=== PATIENT | male | born 1965 | race Caucasian/White ===

== ENCOUNTER 2019-01-05 13:21 | Inpatient (IN) | payer OTHER ==
[~2019-01-05] VITALS: Ht 188 cm; Wt 124.5 kg
[2019-01-05] MEDS ORDERED: IV NORMAL SALINE 1000ML BAG 1,000 ML IV ONE ×2 (13:45→14:00)
[2019-01-05] MEDS ORDERED: ACETAMINOPHEN 500 MG TABLET PO ONE (13:45)
[2019-01-05 14:02] LABS: BASO # 0.1 x10^3/uL (0.0-0.2); BASO % 1 % (0-3); EOS # 0.3 x10^3/uL (0.0-0.7); EOS % 4 % (0-3); HEMOGLOBIN 14.2 g/dL (13.0-17.5); LYMPH # 2.1 x10^3/uL (1.0-4.8); LYMPH % 26 % (24-48); MEAN CORPUSCULAR HEMOGLOBIN 30 pg (25-35); MEAN CORPUSCULAR HGB CONC 34 g/dL (31-37); MEAN CORPUSCULAR VOLUME 88 fL (79-100); MONO % 12 % (0-9); NEUT # 4.5 x10^3/uL (1.8-7.7); NEUT % 57 % (31-73); PLATELET COUNT 343 x10^3/uL (140-400); WHITE BLOOD COUNT 7.8 x10^3/uL (4.0-11.0)
[2019-01-05 14:08] LABS: CALCIUM 8.9 mg/dL (8.5-10.1); CREATININE 1.2 mg/dL (0.7-1.3); GFR 63.8
[2019-01-05 14:09] LABS: BILIRUBIN,URINE NEGATIVE (NEG); CLARITY,URINE CLEAR; COLOR,URINE YELLOW; NITRITE,URINE NEGATIVE (NEG); PH,URINE 5.5; PROTEIN,URINE NEGATIVE (NEG-TRACE); UROBILINOGEN,URINE 0.2 mg/dL (0.2 mg/dL)
[2019-01-05 14:11] LABS: ALBUMIN 4.1 g/dL (3.4-5.0); ALBUMIN/GLOBULIN RATIO 1.4 (1.0-1.7); MAGNESIUM 2.1 mg/dL (1.8-2.4); TOTAL BILIRUBIN 0.4 mg/dL (0.2-1.0)
[2019-01-05 14:14] LABS: BACTERIA,URINE 0 /HPF (0-FEW); RBC,URINE 0 /HPF (0-2); SQUAMOUS EPITHELIAL CELL,UR FEW /LPF; WBC,URINE 0 /HPF (0-4)
[2019-01-05 14:17] LABS: BARBITURATES NEG (NEG); BENZODIAZEPINES NEG (NEG); CANNABINOIDS POS (NEG); COCAINE NEG (NEG); METHADONE NEG (NEG); OPIATES NEG (NEG); PHENCYCLIDINE NEG (NEG)
[2019-01-05 14:19] LABS: AMPHETAMINE/METHAMPHETAMINE NEG (NEG)
--- NOTE | 2019-01-05 14:33 | RAD ---
CT HEAD WO CONTRAST Indication: Seizure. Altered mental status. Exposure: One or more of the following individualized dose reduction techniques were utilized for this examination: 1. Automated exposure control 2. Adjustment of the mA and/or kV according to patient size 3. Use of iterative reconstruction technique. Technique: Standard imaging without intravenous contrast. No evidence of acute intracranial hemorrhage, mass effect, midline shift or abnormal extra-axial fluid collection. Christian-white matter distinction is preserved. Ventricles and sulci appear intact. Partially visualized sinuses demonstrate mild ethmoid and sphenoid sinus mucosal thickening. Complete opacification of right frontal sinus. The barely included maxillary sinuses appear clear. Mastoids are clear. Visualized orbits are unremarkable. No significant scalp hematoma. No acute skull abnormality. IMPRESSION: No definite acute intracranial hemorrhage. If concern persists, consider outpatient MRI brain. Electronically signed by: Gopal Marie MD (01/05/2019 2:31 PM) [facility]
--- NOTE | 2019-01-05 14:50 | RAD ---
Portable chest HISTORY: Chest pain after CPR. COMPARISON: None FINDINGS: Cardiomediastinal silhouette is not enlarged. No evidence of pneumothorax. No pleural effusion. No evidence of an infiltrate. Lung volumes are low. Aorta mildly tortuous. IMPRESSION: No evidence of consolidating infiltrate. Electronically signed by: Gopal Marie MD (01/05/2019 2:47 PM) [facility]
--- NOTE | 2019-01-05 14:58 | PDOC1 ---
History and Physical Date of Admission Date of Admission DATE: 01/05/19 TIME: 14:58 Identification/Chief Complaint Chief Complaint Syncope Source Source: Caregiver, Chart review, Patient History of Present Illness History of Present Illness Mr Ward is a 53yo M w/ PMHx HTN, obesity s/p sleeve gastrectomy, complex regional pain of left ankle, ARABELLA previously on CPAP who was shopping with his at [employer] and [employer] when he had a witnessed convulsive seizure of all 4 extremities where he was notably stiff and shaking uncontrollably. His face was white and then turned purple, he stopped breathing and so a bystander administered CPR. The patient had postictal confusion for more than 15 minutes. Lactate 6.7 in ED and he was fully oriented with no neurologic complaints, but does c/o chest pain. There is no prior history of stroke, seizure, or head injury. 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 Has been sleeping very poorly recently. He requests pain medications for his chest. Past Medical History Cardiovascular: HTN Pulmonary: No pertinent hx GI: No pertinent hx Heme/Onc: No pertinent hx Hepatobiliary: No pertinent hx Psych: No pertinent hx Musculoskeletal: Osteoarthritis Rheumatologic: Other (Neuropathic left ankle pain) Infectious disease: No pertinent hx ENT: No pertinent hx Renal/: No pertinent hx Endocrine: No pertinent hx Dermatology: No pertinent hx Current Medications Current Medications Current Medications Sodium Chloride 1,000 ml @ 1,000 mls/hr 1X ONCE IV Last administered on 01/05/19at 13:58; Start 01/05/19 at 13:45; Stop 01/05/19 at 14:44; Status DC Lorazepam (Ativan Inj) 1 mg 1X ONCE IV Last administered on 01/05/19at 13:58; Start 01/05/19 at 13:45; Stop 01/05/19 at 13:49; Status DC Acetaminophen (Tylenol) 1,000 mg 1X ONCE PO Last administered on 01/05/19at 13:58; Start 01/05/19 at 13:45; Stop 01/05/19 at 13:49; Status DC Sodium Chloride 1,000 ml @ 1,000 mls/hr 1X ONCE IV ; Start 01/05/19 at 14:00; Stop 01/05/19 at 14:59 Ceftriaxone Sodium (Rocephin) 1 gm 1X ONCE IVP ; Start 01/05/19 at 15:00; Stop 01/05/19 at 15:01 Sodium Chloride 1,000 ml @ 125 mls/hr Q8H IV ; Start 01/05/19 at 14:49; Stop 01/06/19 at 14:48 Morphine Sulfate (Morphine Sulfate) 4 mg 1X ONCE IV ; Start 01/05/19 at 15:00; Stop 01/05/19 at 15:01 Allergies Allergies: Coded Allergies: No Known Drug Allergies (Unverified , 01/05/19) ROS General: No: Chills, Night Sweats, Fatigue, Malaise, Appetite, Other PSYCHOLOGICAL ROS: No: Anxiety, Behavioral Disorder, Concentration difficultie, Decreased libido, Depression, Disorientation, Hallucinations, Hostility, Irritablity, Memory difficulties, Mood Swings, Obsessive thoughts, Physical abuse, Sexual abuse, Sleep disturbances, Suicidal ideation, Other Eyes: No Blurry vision, No Decreased vision, No Double vision, No Dry eyes, No Excessive tearing, No Eye Pain, No Itchy Eyes, No Loss of vision, No Photophobia, No Scotomata, No Uses contacts, No Uses glasses, No Other HEENT: No: Heacaches, Visual Changes, Hearing change, Nasal congestion, Nasal discharge, Oral lesions, Sinus pain, Sore Throat, Epistaxis, Sneezing, Snoring, Tinnitus, Vertigo, Vocal changes, Other ALLERGY AND IMMUNOLOGY: No: Hives, Insect Bite Sensitivity, Itchy/Watery Eyes, Nasal Congestion, Post Nasal Drip, Seasonal Allergies, Other Hematological and Lymphatic: No: Bleeding Problems, Blood Clots, Blood Transfusions, Brusing, Night Sweats, Pallor, Swollen Lymph Nodes, Other ENDOCRINE: No: Breast Changes, Galactorrhea, Hair Pattern Changes, Hot Flashes, Malaise/lethargy, Mood Swings, Palpitations, Polydipsia/polyuria, Skin Changes, Temperature Intolerance, Unexpected Weight Changes, Other Breast: No New/Changing Breast Lumps, No Nipple changes, No Nipple discharge, No Other Respiratory: No: Cough, Hemoptysis, Orthopnea, Pleuritic Pain, Shortness of breath, SOB with excertion, Sputum Changes, Stridor, Tachypnea, Wheezing, Other Cardiovascular: yes Chest Pain; No Palpitations, No Orthopnea, No Paroxysmal Noc. Dyspnea, No Edema, No Lt Headedness, No Other Gastrointestinal: Yes Nausea; No Vomiting, No Abdominal Pain, No Diarrhea, No Constipation, No Melena, No Hematochezia, No Other Genitourinary: No Dysuria, No Frequency, No Incontinence, No Hematuria, No Retention, No Discharge, No Urgency, No Pain, No Flank Pain, No Other, No , No , No , No , No , No , No Musculoskeletal: No Gait Disturbance, No Joint Pain, No Joint Stiffness, No Joint Swelling, No Muscle Pain, No Muscular Weakness, No Pain In:, No Swelling In:, No Other Neurological: No Behavorial Changes, No Bowel/Bladder ControlChng, No Confusion, No Dizziness, No Gait Disturbance, No Headaches, No Impaired Coord/balance, No Memory Loss, No Numbness/Tingling, No Seizures, No Speech Problems, No Tremors, No Visual Changes, No Weakness, No Other Skin: No Dry Skin, No Eczema, No Hair Changes, No Lumps, No Mole Changes, No Mottling, No Nail Changes, No Pruritus, No Rash, No Skin Lesion Changes, No Other, No Acne Physical Exam General: Alert, Oriented X3, Cooperative, No acute distress HEENT: Atraumatic, PERRLA, EOMI, Mucous membr. moist/pink Lungs: Clear to auscultation, Normal air movement Heart: S1S2, RRR, no gallops, no murmurs Abdomen: Normal bowel sounds, Soft, No tenderness, No hepatosplenomegaly, No masses Rectal Exam: not examined Extremities: No clubbing, No cyanosis, No edema, Normal pulses, No tenderness/swelling Skin: No rashes, No breakdown, No significant lesion Neuro: Normal gait, Normal speech, Strength at 5/5 X4 ext, Normal tone, Sensation intact, Cranial nerves 3-12 NL, Reflexes 2+ Psych/Mental Status: Mental status NL, Mood NL Vitals Vitals Vital Signs Date Time Temp Pulse Resp B/P (MAP) Pulse Ox O2 Delivery O2 Flow Rate FiO2 01/05/19 13:31 100.9 110 20 155/86 (109) 100 Room Air 100.9 Labs Labs Laboratory Tests Test 01/05/19 13:40 9/2/19 14:03 White Blood Count 7.8 x10^3/uL (4.0-11.0) Red Blood Count 4.80 x10^6/uL (4.30-5.70) Hemoglobin 14.2 g/dL (13.0-17.5) Hematocrit 42.0 % (39.0-53.0) Mean Corpuscular Volume 88 fL (79-100) Mean Corpuscular Hemoglobin 30 pg (25-35) Mean Corpuscular Hemoglobin Concent 34 g/dL (31-37) Red Cell Distribution Width 15.0 % (11.5-14.5) Platelet Count 343 x10^3/uL (140-400) Neutrophils (%) (Auto) 57 % (31-73) Lymphocytes (%) (Auto) 26 % (24-48) Monocytes (%) (Auto) 12 % (0-9) Eosinophils (%) (Auto) 4 % (0-3) Basophils (%) (Auto) 1 % (0-3) Neutrophils # (Auto) 4.5 x10^3/uL (1.8-7.7) Lymphocytes # (Auto) 2.1 x10^3/uL (1.0-4.8) Monocytes # (Auto) 1.0 x10^3/uL (0.0-1.1) Eosinophils # (Auto) 0.3 x10^3/uL (0.0-0.7) Basophils # (Auto) 0.1 x10^3/uL (0.0-0.2) Prothrombin Time 12.0 SEC (11.7-14.0) Prothromb Time International Ratio 0.9 (0.8-1.1) Sodium Level 145 mmol/L (136-145) Potassium Level 4.0 mmol/L (3.5-5.1) Chloride Level 106 mmol/L (98-107) Carbon Dioxide Level 25 mmol/L (21-32) Anion Gap 14 (6-14) Blood Urea Nitrogen 10 mg/dL (8-26) Creatinine 1.2 mg/dL (0.7-1.3) Estimated GFR (Cockcroft-Gault) 63.8 BUN/Creatinine Ratio 8 (6-20) Glucose Level 83 mg/dL (70-99) Lactic Acid Level 6.7 mmol/L (0.4-2.0) Calcium Level 8.9 mg/dL (8.5-10.1) Magnesium Level 2.1 mg/dL (1.8-2.4) Total Bilirubin 0.4 mg/dL (0.2-1.0) Aspartate Amino Transf (AST/SGOT) 19 U/L (15-37) Alanine Aminotransferase (ALT/SGPT) 23 U/L (16-63) Alkaline Phosphatase 80 U/L (46-116) Troponin I Quantitative < 0.017 ng/mL (0.000-0.055) Total Protein 7.0 g/dL (6.4-8.2) Albumin 4.1 g/dL (3.4-5.0) Albumin/Globulin Ratio 1.4 (1.0-1.7) Ethyl Alcohol Level < 10 mg/dL (0-10) Urine Collection Type Unknown Urine Color Yellow Urine Clarity Clear Urine pH 5.5 Urine Specific [place] 1.015 Urine Protein Negative mg/dL (NEG-TRACE) Urine Glucose (UA) Negative mg/dL (NEG) Urine Ketones (Stick) Negative mg/dL (NEG) Urine Blood Negative (NEG) Urine Nitrite Negative (NEG) Urine Bilirubin Negative (NEG) Urine Urobilinogen Dipstick 0.2 mg/dL (0.2 mg/dL) Urine Leukocyte Esterase Negative (NEG) Urine RBC 0 /HPF (0-2) Urine WBC 0 /HPF (0-4) Urine Squamous Epithelial Cells Few /LPF Urine Bacteria 0 /HPF (0-FEW) Urine Mucus Mod /LPF Urine Opiates Screen Neg (NEG) Urine Methadone Screen Neg (NEG) Urine Barbiturates Neg (NEG) Urine Phencyclidine Screen Neg (NEG) Urine Amphetamine/Methamphetamine Neg (NEG) Urine Benzodiazepines Screen Neg (NEG) Urine Cocaine Screen Neg (NEG) Urine Cannabinoids Screen Pos (NEG) Urine Ethyl Alcohol Neg (NEG) Laboratory Tests Test 01/05/19 13:40 01/05/19 14:03 White Blood Count 7.8 x10^3/uL (4.0-11.0) Red Blood Count 4.80 x10^6/uL (4.30-5.70) Hemoglobin 14.2 g/dL (13.0-17.5) Hematocrit 42.0 % (39.0-53.0) Mean Corpuscular Volume 88 fL (79-100) Mean Corpuscular Hemoglobin 30 pg (25-35) Mean Corpuscular Hemoglobin Concent 34 g/dL (31-37) Red Cell Distribution Width 15.0 % (11.5-14.5) Platelet Count 343 x10^3/uL (140-400) Neutrophils (%) (Auto) 57 % (31-73) Lymphocytes (%) (Auto) 26 % (24-48) Monocytes (%) (Auto) 12 % (0-9) Eosinophils (%) (Auto) 4 % (0-3) Basophils (%) (Auto) 1 % (0-3) Neutrophils # (Auto) 4.5 x10^3/uL (1.8-7.7) Lymphocytes # (Auto) 2.1 x10^3/uL (1.0-4.8) Monocytes # (Auto) 1.0 x10^3/uL (0.0-1.1) Eosinophils # (Auto) 0.3 x10^3/uL (0.0-0.7) Basophils # (Auto) 0.1 x10^3/uL (0.0-0.2) Prothrombin Time 12.0 SEC (11.7-14.0) Prothromb Time International Ratio 0.9 (0.8-1.1) Sodium Level 145 mmol/L (136-145) Potassium Level 4.0 mmol/L (3.5-5.1) Chloride Level 106 mmol/L (98-107) Carbon Dioxide Level 25 mmol/L (21-32) Anion Gap 14 (6-14) Blood Urea Nitrogen 10 mg/dL (8-26) Creatinine 1.2 mg/dL (0.7-1.3) Estimated GFR (Cockcroft-Gault) 63.8 BUN/Creatinine Ratio 8 (6-20) Glucose Level 83 mg/dL (70-99) Lactic Acid Level 6.7 mmol/L (0.4-2.0) Calcium Level 8.9 mg/dL (8.5-10.1) Magnesium Level 2.1 mg/dL (1.8-2.4) Total Bilirubin 0.4 mg/dL (0.2-1.0) Aspartate Amino Transf (AST/SGOT) 19 U/L (15-37) Alanine Aminotransferase (ALT/SGPT) 23 U/L (16-63) Alkaline Phosphatase 80 U/L (46-116) Troponin I Quantitative < 0.017 ng/mL (0.000-0.055) Total Protein 7.0 g/dL (6.4-8.2) Albumin 4.1 g/dL (3.4-5.0) Albumin/Globulin Ratio 1.4 (1.0-1.7) Ethyl Alcohol Level < 10 mg/dL (0-10) Urine Collection Type Unknown Urine Color Yellow Urine Clarity Clear Urine pH 5.5 Urine Specific [place] 1.015 Urine Protein Negative mg/dL (NEG-TRACE) Urine Glucose (UA) Negative mg/dL (NEG) Urine Ketones (Stick) Negative mg/dL (NEG) Urine Blood Negative (NEG) Urine Nitrite Negative (NEG) Urine Bilirubin Negative (NEG) Urine Urobilinogen Dipstick 0.2 mg/dL (0.2 mg/dL) Urine Leukocyte Esterase Negative (NEG) Urine RBC 0 /HPF (0-2) Urine WBC 0 /HPF (0-4) Urine Squamous Epithelial Cells Few /LPF Urine Bacteria 0 /HPF (0-FEW) Urine Mucus Mod /LPF Urine Opiates Screen Neg (NEG) Urine Methadone Screen Neg (NEG) Urine Barbiturates Neg (NEG) Urine Phencyclidine Screen Neg (NEG) Urine Amphetamine/Methamphetamine Neg (NEG) Urine Benzodiazepines Screen Neg (NEG) Urine Cocaine Screen Neg (NEG) Urine Cannabinoids Screen Pos (NEG) Urine Ethyl Alcohol Neg (NEG) Images Images CT head - no acute intracranial abnormality VTE Prophylaxis Ordered VTE Prophylaxis Devices: Yes VTE Pharmacological Prophylaxi: No Assessment/Plan Assessment/Plan A/P: New onset seizure - spontaneously stopped. Ativan prn. Likely related to sleep deprivation or he possibly has had dose adjustments to lyrica. Neurology consulted. MRI and EEG head indicated Chest pain - 2/2 CPR in field. He was not noted as pulseless, simply stopped breathing. Will cont pain meds IV and PO and trend troponins HTN - will cont home meds Obesity s/p sleeve gastrectomy - lost 130 pounds, gained 30 back. Counseled Complex regional pain of left ankle - on lyrica. Possibly related to seizure, will consult neurology. Cont med for now ARABELLA previously on CPAP - has been sleeping poorly, needs a titration study. FEN - General PPX - SCDs FULL CODE Inpatient for new seizure. No driving discussed with patient BRICE FISHER MD Jan 05, 2019 14:58
[2019-01-05] MEDS ORDERED: MORPHINE SULFATE 4 MG/ML VIAL. IV ONE (15:00)
[2019-01-05] MEDS ORDERED: cefTRIAXone IV Push 1 GM VIAL. IVP ONE (15:00)
[2019-01-05] MEDS ORDERED: HYDROmorphone 2 MG/ML VIAL IV ONE (16:00)
--- NOTE | 2019-01-05 16:03 | PHYS DOC ---
Past Medical History Past Medical History: Hypertension Past Surgical History: Knee Replacement Alcohol Use: Rarely Drug Use: None Adult General Chief Complaint Chief Complaint: SEIZURE HPI HPI Patient is a 53 year old male who presents with chief complaint of seizure or syncope. Apparently the patient was shopping at [employer] with the began to feel woozy felt some aura or described really as seeing spots in the periphery of his vision felt very lightheaded and dizzy went inside, but then before they could get a laurie, slumped up against the wall he turned white lips were blue he had shaking activity thinks it was a seizure bystander who apparently was a nurse tells me began to perform CPR approximately a minute or 2 is not sure exactly on tnt line supervisor arrival the patient had a postictal but was awake and answering questions generally Patient denies recent illnesses did not have a fever before the incident did not have any chest pain prior to that he is currently complaining of sharp right- sided chest pain where the CPR was performed no prior history of seizure disorder denies headache ON initial evaluation the emergency room. Review of Systems Review of Systems Constitutional: Denies fever or chills [] Eyes: Denies change in visual acuity, redness, or eye pain [] HENT: Denies nasal congestion or sore throat [][] Cardiovascular: No additional information not addressed in HPI [] GI: Denies abdominal pain, nausea, vomiting, bloody stools or diarrhea [] : Denies dysuria or hematuria [] Musculoskeletal: Denies back pain or joint pain [] All other systems were reviewed and found to be within normal limits, except as documented in this note. Current Medications Current Medications Current Medications Medications (Trade) Dose Ordered Sig/Kwan Start Time Stop Time Status Last Admin Dose Admin Acetaminophen (Tylenol) 1,000 mg 1X ONCE 01/05/19 13:45 01/05/19 13:49 DC 01/05/19 13:58 1,000 MG Ceftriaxone Sodium (Rocephin) 1 gm 1X ONCE 01/05/19 15:00 01/05/19 15:01 DC 01/05/19 15:22 1 GM Lorazepam (Ativan Inj) 1 mg 1X ONCE 01/05/19 13:45 01/05/19 13:49 DC 01/05/19 13:58 1 MG Morphine Sulfate (Morphine Sulfate) 4 mg 1X ONCE 01/05/19 15:00 01/05/19 15:01 DC 01/05/19 15:22 4 MG Sodium Chloride 1,000 ml @ 125 mls/hr Q8H 01/05/19 14:49 01/06/19 14:48 Allergies Allergies Allergies Coded Allergies Type Severity Reaction Last Updated Verified No Known Drug Allergies 01/05/19 No Physical Exam Physical Exam Constitutional: Well developed, well nourished, no acute distress, non-toxic appearance. [] HENT: Normocephalic, atraumatic, bilateral external ears normal, oropharynx moist, no oral exudates, nose normal. [] Eyes: PERRLA, EOMI, conjunctiva normal, no discharge. [] Neck: Normal range of motion, no tenderness, supple, no stridor. [] Cardiovascular:Heart rate regular rhythm, no murmur [] Lungs & Thorax: Bilateral breath sounds clear to auscultation [] CHEST WALL TTP NOTED, REPRODUCIBLE Abdomen: Bowel sounds normal, soft, no tenderness, no masses, no pulsatile masses. [] Skin: Warm, dry, no erythema, no rash. [] Back: No tenderness, no CVA tenderness. [] Extremities: No tenderness, no cyanosis, no clubbing, ROM intact, no edema. [] Neurologic: Alert and oriented X 3, normal motor function, normal sensory function, no focal deficits noted. [] NECK IS SUPPLE. PT ALERT, NO NYSTAGMUS. Psychologic: Affect normal, judgement normal, mood normal. [] Current Patient Data Vital Signs Vital Signs Date Time Temp Pulse Resp B/P (MAP) Pulse Ox O2 Delivery O2 Flow Rate FiO2 01/05/19 14:59 87 18 97 01/05/19 13:31 100.9 155/86 (109) Room Air 100.9 Lab Values Laboratory Tests Test 01/05/19 13:40 01/05/19 14:03 01/05/19 15:15 White Blood Count 7.8 x10^3/uL (4.0-11.0) Red Blood Count 4.80 x10^6/uL (4.30-5.70) Hemoglobin 14.2 g/dL (13.0-17.5) Hematocrit 42.0 % (39.0-53.0) Mean Corpuscular Volume 88 fL (79-100) Mean Corpuscular Hemoglobin 30 pg (25-35) Mean Corpuscular Hemoglobin Concent 34 g/dL (31-37) Red Cell Distribution Width 15.0 % (11.5-14.5) H Platelet Count 343 x10^3/uL (140-400) Neutrophils (%) (Auto) 57 % (31-73) Lymphocytes (%) (Auto) 26 % (24-48) Monocytes (%) (Auto) 12 % (0-9) H Eosinophils (%) (Auto) 4 % (0-3) H Basophils (%) (Auto) 1 % (0-3) Neutrophils # (Auto) 4.5 x10^3/uL (1.8-7.7) Lymphocytes # (Auto) 2.1 x10^3/uL (1.0-4.8) Monocytes # (Auto) 1.0 x10^3/uL (0.0-1.1) Eosinophils # (Auto) 0.3 x10^3/uL (0.0-0.7) Basophils # (Auto) 0.1 x10^3/uL (0.0-0.2) Prothrombin Time 12.0 SEC (11.7-14.0) Prothrombin Time INR 0.9 (0.8-1.1) Sodium Level 145 mmol/L (136-145) Potassium Level 4.0 mmol/L (3.5-5.1) Chloride Level 106 mmol/L (98-107) Carbon Dioxide Level 25 mmol/L (21-32) Anion Gap 14 (6-14) Blood Urea Nitrogen 10 mg/dL (8-26) Creatinine 1.2 mg/dL (0.7-1.3) Estimated GFR (Cockcroft-Gault) 63.8 BUN/Creatinine Ratio 8 (6-20) Glucose Level 83 mg/dL (70-99) Lactic Acid Level 6.7 mmol/L (0.4-2.0) *H 0.9 mmol/L (0.4-2.0) Calcium Level 8.9 mg/dL (8.5-10.1) Magnesium Level 2.1 mg/dL (1.8-2.4) Total Bilirubin 0.4 mg/dL (0.2-1.0) Aspartate Amino Transferase (AST) 19 U/L (15-37) Alanine Aminotransferase (ALT) 23 U/L (16-63) Alkaline Phosphatase 80 U/L (46-116) Troponin I Quantitative < 0.017 ng/mL (0.000-0.055) Total Protein 7.0 g/dL (6.4-8.2) Albumin 4.1 g/dL (3.4-5.0) Albumin/Globulin Ratio 1.4 (1.0-1.7) Ethyl Alcohol Level < 10 mg/dL (0-10) Urine Collection Type Unknown Urine Color Yellow Urine Clarity Clear Urine pH 5.5 Urine Specific [place] 1.015 Urine Protein Negative mg/dL (NEG-TRACE) Urine Glucose (UA) Negative mg/dL (NEG) Urine Ketones (Stick) Negative mg/dL (NEG) Urine Blood Negative (NEG) Urine Nitrite Negative (NEG) Urine Bilirubin Negative (NEG) Urine Urobilinogen Dipstick 0.2 mg/dL (0.2 mg/dL) Urine Leukocyte Esterase Negative (NEG) Urine RBC 0 /HPF (0-2) Urine WBC 0 /HPF (0-4) Urine Squamous Epithelial Cells Few /LPF Urine Bacteria 0 /HPF (0-FEW) Urine Mucus Mod /LPF Urine Opiates Screen Neg (NEG) Urine Methadone Screen Neg (NEG) Urine Barbiturates Neg (NEG) Urine Phencyclidine Screen Neg (NEG) Urine Amphetamine/Methamphetamine Neg (NEG) Urine Benzodiazepines Screen Neg (NEG) Urine Cocaine Screen Neg (NEG) Urine Cannabinoids Screen Pos (NEG) Urine Ethyl Alcohol Neg (NEG) Laboratory Tests 01/05/19 13:40 Laboratory Tests 01/05/19 13:40 EKG EKG []EKG shows a normal sinus rhythm with a rate of 107 likely mild sinus tachycardia QTc 441 no acute STEMI was identified Radiology/Procedures Radiology/Procedures [] Exposure: One or more of the following individualized dose reduction techniques were utilized for this examination: 1. Automated exposure control 2. Adjustment of the mA and/or kV according to patient size 3. Use of iterative reconstruction technique. Technique: Standard imaging without intravenous contrast. No evidence of acute intracranial hemorrhage, mass effect, midline shift or abnormal extra-axial fluid collection. Christian-white matter distinction is preserved. Ventricles and sulci appear intact. Partially visualized sinuses demonstrate mild ethmoid and sphenoid sinus mucosal thickening. Complete opacification of right frontal sinus. The barely included maxillary sinuses appear clear. Mastoids are clear. Visualized orbits are unremarkable. No significant scalp hematoma. No acute skull abnormality. IMPRESSION: No definite acute intracranial hemorrhage. If concern persists, consider outpatient MRI brain. Electronically signed by: Gopal Marie MD (01/05/2019 2:31 PM) [facility] DICTATED and SIGNED BY: GOPAL MARIE MD DATE: 01/05/19 1431 Impressions: MPARISON: None FINDINGS: Cardiomediastinal silhouette is not enlarged. No evidence of pneumothorax. No pleural effusion. No evidence of an infiltrate. Lung volumes are low. Aorta mildly tortuous. IMPRESSION: No evidence of consolidating infiltrate. Electronically signed by: Gopal Marie MD (01/05/2019 2:47 PM) [facility] DICTATED and SIGNED BY: GOPAL MARIE MD DATE: 01/05/19 1447 Course & Med Decision Making Course & Med Decision Making Pertinent Labs and Imaging studies reviewed. 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 The story from the does sound probably more like a seizure however CPR was performed by cording to the report that I currently have a bystander who was training as a nurse. Lactic acidosis is noted again likely related to seizure however given the fact that CPR was performed I feel the patient warrants admission overnight for observation and cardiac monitoring hospitalist evaluation and possibly neurology consultation. Noted the temperature 100.9 on repeat it was 98.4 patient is awake and alert [place] Coma Scale 15 the neck is supple I do not think the patient has encephalitis or meningitis or any obvious source for sepsis at this time did give a dose of ceftriaxone in the emergency room as well as IV fluids and will repeat the lactic acid but again I do not think the lactic acidosis from sepsis at this time Discussed with Dr. FISHER saw the patient in the ER. Please routine consult with neurology as well and Dr. Hart did come down to see the patient in the emergency room as well. I also told the patient not to drive until he is cleared by neurology Dragon Disclaimer Dragon Disclaimer This electronic medical record was generated, in whole or in part, using a voice recognition dictation system. Departure Departure Impression: Primary Impression: Lactic acid acidosis Additional Impression: Seizure Disposition: ADMITTED INPATIENT Admitting Physician: HIMS Condition: STABLE Referrals: UNKNOWN PCP NAME (PCP) Problem Qualifiers DENVER RAHMAN MD Jan 05, 2019 16:03
--- NOTE | 2019-01-05 16:13 | PDOC2 ---
NEUROLOGY CONSULT Date of Admission Date of Admission DATE: 01/05/19 TIME: 16:05 Reason for Consult Reason for Consult: seizure Referring Physician Referring Physician: Dr. Wallis Source Source: Caregiver (), Chart review, Patient History of Present Illness History of Present Illness The patient is a 33-year-old right-handed male who was shopping with his when he had a witnessed convulsive seizure. The describes a typical convulsive seizure. His face was white and a bystander administered CPR. The patient had postictal confusion. He was alert in the emergency department where I examined him. There is no prior history of stroke, seizure, or head injury. 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 He is having some chest wall pain following the resuscitation attempts, and would like Tylenol 3 instead of morphine which makes his stomach hurt. 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 Current Medications Current Medications Current Medications Sodium Chloride 1,000 ml @ 1,000 mls/hr 1X ONCE IV Last administered on 01/05/19at 13:58; Start 01/05/19 at 13:45; Stop 01/05/19 at 14:44; Status DC Lorazepam (Ativan Inj) 1 mg 1X ONCE IV Last administered on 01/05/19at 13:58; Start 01/05/19 at 13:45; Stop 01/05/19 at 13:49; Status DC Acetaminophen (Tylenol) 1,000 mg 1X ONCE PO Last administered on 01/05/19at 13:58; Start 01/05/19 at 13:45; Stop 01/05/19 at 13:49; Status DC Sodium Chloride 1,000 ml @ 1,000 mls/hr 1X ONCE IV Last administered on 01/05/19at 15:31; Start 01/05/19 at 14:00; Stop 01/05/19 at 14:59; Status DC Ceftriaxone Sodium (Rocephin) 1 gm 1X ONCE IVP Last administered on 01/05/19at 15:22; Start 01/05/19 at 15:00; Stop 01/05/19 at 15:01; Status DC Sodium Chloride 1,000 ml @ 125 mls/hr Q8H IV ; Start 01/05/19 at 14:49; Stop 01/06/19 at 14:48 Morphine Sulfate (Morphine Sulfate) 4 mg 1X ONCE IV Last administered on 01/05/19at 15:22; Start 01/05/19 at 15:00; Stop 01/05/19 at 15:01; Status DC Hydromorphone HCl (Dilaudid) 1 mg 1X ONCE IV ; Start 01/05/19 at 16:00; Stop 01/05/19 at 16:01; Status DC Allergies Allergies: Coded Allergies: No Known Drug Allergies (Unverified , 01/05/19) ROS Review of System Negative for fever, chills, weight loss, shortness of breath, chest pain, indigestion, hematochezia, melena, and dysuria. Full 14-point review of systems is negative. Physical Exam Physical Examination General: Well-developed, well-nourished white male in no acute distress HEENT: Normocephalic and�atraumatic. Temporal arteries�pulsatile and nontender.� Neck: Supple without bruit, no meningismus� Musculoskeletal: Stability:�see neurologic. Gait exam:�see neurologic. Tone:�see neurologic.� Strength:�see neurologic.� Neurological: Mental Status:�intact, orientation, memory, attention span/concentration, language, fund of knowledge normal. Cranial Nerves:�Pupils equal and reactive to light, extraocular movements are�intact, visual thao are full to confrontation. Facial sensation is normal. There is no facial asymmetry. Vestibulo-ocular reflex is intact. Palate elevates and tongue protrudes in midline. All other cranial related problems are negative except as mentioned before.�Reflexes:�2+ and symmetric with flexor plantar responses. Motor:�5/5 strength with normal tone and bulk. Coordination:�Finger-nose finger and he el-to-landry testing are normal. Rapid alternating movements and fine finger movements are intact. Gait:�not tested. Sensory:�Normal pinprick, vibration, light touch, proprioception.� Vitals VITALS Vital Signs Date Time Temp Pulse Resp B/P (MAP) Pulse Ox O2 Delivery O2 Flow Rate FiO2 01/05/19 14:59 87 18 97 01/05/19 13:31 100.9 155/86 (109) Room Air 100.9 Labs Labs Laboratory Tests Test 01/05/19 13:40 01/05/19 14:03 01/05/19 15:15 White Blood Count 7.8 x10^3/uL (4.0-11.0) Red Blood Count 4.80 x10^6/uL (4.30-5.70) Hemoglobin 14.2 g/dL (13.0-17.5) Hematocrit 42.0 % (39.0-53.0) Mean Corpuscular Volume 88 fL (79-100) Mean Corpuscular Hemoglobin 30 pg (25-35) Mean Corpuscular Hemoglobin Concent 34 g/dL (31-37) Red Cell Distribution Width 15.0 % (11.5-14.5) Platelet Count 343 x10^3/uL (140-400) Neutrophils (%) (Auto) 57 % (31-73) Lymphocytes (%) (Auto) 26 % (24-48) Monocytes (%) (Auto) 12 % (0-9) Eosinophils (%) (Auto) 4 % (0-3) Basophils (%) (Auto) 1 % (0-3) Neutrophils # (Auto) 4.5 x10^3/uL (1.8-7.7) Lymphocytes # (Auto) 2.1 x10^3/uL (1.0-4.8) Monocytes # (Auto) 1.0 x10^3/uL (0.0-1.1) Eosinophils # (Auto) 0.3 x10^3/uL (0.0-0.7) Basophils # (Auto) 0.1 x10^3/uL (0.0-0.2) Prothrombin Time 12.0 SEC (11.7-14.0) Prothromb Time International Ratio 0.9 (0.8-1.1) Sodium Level 145 mmol/L (136-145) Potassium Level 4.0 mmol/L (3.5-5.1) Chloride Level 106 mmol/L (98-107) Carbon Dioxide Level 25 mmol/L (21-32) Anion Gap 14 (6-14) Blood Urea Nitrogen 10 mg/dL (8-26) Creatinine 1.2 mg/dL (0.7-1.3) Estimated GFR (Cockcroft-Gault) 63.8 BUN/Creatinine Ratio 8 (6-20) Glucose Level 83 mg/dL (70-99) Lactic Acid Level 6.7 mmol/L (0.4-2.0) 0.9 mmol/L (0.4-2.0) Calcium Level 8.9 mg/dL (8.5-10.1) Magnesium Level 2.1 mg/dL (1.8-2.4) Total Bilirubin 0.4 mg/dL (0.2-1.0) Aspartate Amino Transf (AST/SGOT) 19 U/L (15-37) Alanine Aminotransferase (ALT/SGPT) 23 U/L (16-63) Alkaline Phosphatase 80 U/L (46-116) Troponin I Quantitative < 0.017 ng/mL (0.000-0.055) Total Protein 7.0 g/dL (6.4-8.2) Albumin 4.1 g/dL (3.4-5.0) Albumin/Globulin Ratio 1.4 (1.0-1.7) Ethyl Alcohol Level < 10 mg/dL (0-10) Urine Collection Type Unknown Urine Color Yellow Urine Clarity Clear Urine pH 5.5 Urine Specific [place] 1.015 Urine Protein Negative mg/dL (NEG-TRACE) Urine Glucose (UA) Negative mg/dL (NEG) Urine Ketones (Stick) Negative mg/dL (NEG) Urine Blood Negative (NEG) Urine Nitrite Negative (NEG) Urine Bilirubin Negative (NEG) Urine Urobilinogen Dipstick 0.2 mg/dL (0.2 mg/dL) Urine Leukocyte Esterase Negative (NEG) Urine RBC 0 /HPF (0-2) Urine WBC 0 /HPF (0-4) Urine Squamous Epithelial Cells Few /LPF Urine Bacteria 0 /HPF (0-FEW) Urine Mucus Mod /LPF Urine Opiates Screen Neg (NEG) Urine Methadone Screen Neg (NEG) Urine Barbiturates Neg (NEG) Urine Phencyclidine Screen Neg (NEG) Urine Amphetamine/Methamphetamine Neg (NEG) Urine Benzodiazepines Screen Neg (NEG) Urine Cocaine Screen Neg (NEG) Urine Cannabinoids Screen Pos (NEG) Urine Ethyl Alcohol Neg (NEG) Laboratory Tests Test 01/05/19 13:40 01/05/19 14:03 01/05/19 15:15 White Blood Count 7.8 x10^3/uL (4.0-11.0) Red Blood Count 4.80 x10^6/uL (4.30-5.70) Hemoglobin 14.2 g/dL (13.0-17.5) Hematocrit 42.0 % (39.0-53.0) Mean Corpuscular Volume 88 fL (79-100) Mean Corpuscular Hemoglobin 30 pg (25-35) Mean Corpuscular Hemoglobin Concent 34 g/dL (31-37) Red Cell Distribution Width 15.0 % (11.5-14.5) Platelet Count 343 x10^3/uL (140-400) Neutrophils (%) (Auto) 57 % (31-73) Lymphocytes (%) (Auto) 26 % (24-48) Monocytes (%) (Auto) 12 % (0-9) Eosinophils (%) (Auto) 4 % (0-3) Basophils (%) (Auto) 1 % (0-3) Neutrophils # (Auto) 4.5 x10^3/uL (1.8-7.7) Lymphocytes # (Auto) 2.1 x10^3/uL (1.0-4.8) Monocytes # (Auto) 1.0 x10^3/uL (0.0-1.1) Eosinophils # (Auto) 0.3 x10^3/uL (0.0-0.7) Basophils # (Auto) 0.1 x10^3/uL (0.0-0.2) Prothrombin Time 12.0 SEC (11.7-14.0) Prothromb Time International Ratio 0.9 (0.8-1.1) Sodium Level 145 mmol/L (136-145) Potassium Level 4.0 mmol/L (3.5-5.1) Chloride Level 106 mmol/L (98-107) Carbon Dioxide Level 25 mmol/L (21-32) Anion Gap 14 (6-14) Blood Urea Nitrogen 10 mg/dL (8-26) Creatinine 1.2 mg/dL (0.7-1.3) Estimated GFR (Cockcroft-Gault) 63.8 BUN/Creatinine Ratio 8 (6-20) Glucose Level 83 mg/dL (70-99) Lactic Acid Level 6.7 mmol/L (0.4-2.0) 0.9 mmol/L (0.4-2.0) Calcium Level 8.9 mg/dL (8.5-10.1) Magnesium Level 2.1 mg/dL (1.8-2.4) Total Bilirubin 0.4 mg/dL (0.2-1.0) Aspartate Amino Transf (AST/SGOT) 19 U/L (15-37) Alanine Aminotransferase (ALT/SGPT) 23 U/L (16-63) Alkaline Phosphatase 80 U/L (46-116) Troponin I Quantitative < 0.017 ng/mL (0.000-0.055) Total Protein 7.0 g/dL (6.4-8.2) Albumin 4.1 g/dL (3.4-5.0) Albumin/Globulin Ratio 1.4 (1.0-1.7) Ethyl Alcohol Level < 10 mg/dL (0-10) Urine Collection Type Unknown Urine Color Yellow Urine Clarity Clear Urine pH 5.5 Urine Specific [place] 1.015 Urine Protein Negative mg/dL (NEG-TRACE) Urine Glucose (UA) Negative mg/dL (NEG) Urine Ketones (Stick) Negative mg/dL (NEG) Urine Blood Negative (NEG) Urine Nitrite Negative (NEG) Urine Bilirubin Negative (NEG) Urine Urobilinogen Dipstick 0.2 mg/dL (0.2 mg/dL) Urine Leukocyte Esterase Negative (NEG) Urine RBC 0 /HPF (0-2) Urine WBC 0 /HPF (0-4) Urine Squamous Epithelial Cells Few /LPF Urine Bacteria 0 /HPF (0-FEW) Urine Mucus Mod /LPF Urine Opiates Screen Neg (NEG) Urine Methadone Screen Neg (NEG) Urine Barbiturates Neg (NEG) Urine Phencyclidine Screen Neg (NEG) Urine Amphetamine/Methamphetamine Neg (NEG) Urine Benzodiazepines Screen Neg (NEG) Urine Cocaine Screen Neg (NEG) Urine Cannabinoids Screen Pos (NEG) Urine Ethyl Alcohol Neg (NEG) Images Images CT HEAD WO CONTRAST Indication: Seizure. Altered mental status. Exposure: One or more of the following individualized dose reduction techniques were utilized for this examination: 1. Automated exposure control 2. Adjustment of the mA and/or kV according to patient size 3. Use of iterative reconstruction technique. Technique: Standard imaging without intravenous contrast. No evidence of acute intracranial hemorrhage, mass effect, midline shift or abnormal extra-axial fluid collection. Christian-white matter distinction is preserved. Ventricles and sulci appear intact. Partially visualized sinuses demonstrate mild ethmoid and sphenoid sinus mucosal thickening. Complete opacification of right frontal sinus. The barely included maxillary sinuses appear clear. Mastoids are clear. Visualized orbits are unremarkable. No significant scalp hematoma. No acute skull abnormality. IMPRESSION: No definite acute intracranial hemorrhage. If concern persists, consider outpatient MRI brain. 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 He cannot drive until he has gone 6 months without a seizure. Thank you for letting me help with the patient's care. NANCY PASCUAL MD Jan 05, 2019 16:13
[2019-01-05] MEDS ORDERED: ACETAMINOPHEN/CODEINE 300/30MG TABLET. PO PRN (16:15)
--- NOTE | 2019-01-05 16:40 | NUR ---
Received report from Celestina GONZALEZ in ER, HTN of 130s but nothing severe. WC via [place].
--- NOTE | 2019-01-05 17:04 | EKG ---
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
[2019-01-05] MEDS: IV NORMAL SALINE 1000ML BAG 1,000 ML IV SCH (17:08)
[2019-01-05 17:26] VITALS: BP 176/101
[2019-01-05] MEDS ORDERED: MORPHINE SULFATE 4 MG/ML VIAL. IV PRN (18:45)
[2019-01-05] MEDS: amLODIPine BESYLATE 10 MG TABLET PO SCH (18:56)
[2019-01-05] MEDS ORDERED: amLODIPine BESYLATE 5 MG TABLET PO ONE (19:00)
[2019-01-05 19:05] VITALS: BP 141/84
[2019-01-05] MEDS ORDERED: LOSA100T14 PO (19:34)
[2019-01-05] MEDS ORDERED: AMLO10TA8 PO (19:34)
[2019-01-05] MEDS: HYDROcodone/APAP 7.5/325MG 1 TAB TABLET PO PRN (20:24)
[2019-01-05] MEDS: PREGABALIN 75 MG CAPSULE PO SCH (20:46)
[2019-01-05] MEDS ORDERED: KETOROLAC 15 MG/ML VIAL. IV PRN ×2 (22:45)
[2019-01-05] MEDS ORDERED: fentaNYL PF VIAL 100 MCG/2 ML VIAL IV PRN (22:45)
[2019-01-05 23:38] VITALS: BP 138/82
[2019-01-05] MEDS: fentaNYL PF VIAL 100 MCG/2 ML VIAL IV PRN (23:43)
[2019-01-06] MEDS: IV NORMAL SALINE 1000ML BAG 1,000 ML IV SCH ×2 (00:01→09:10)
[2019-01-06] MEDS: HYDROcodone/APAP 7.5/325MG 1 TAB TABLET PO PRN ×3 (01:48→14:12)
[2019-01-06 03:05] VITALS: BP 121/80
[2019-01-06] MEDS: fentaNYL PF VIAL 100 MCG/2 ML VIAL IV PRN ×3 (03:35→12:34)
[2019-01-06 07:50] VITALS: BP 161/100
[2019-01-06] MEDS ORDERED: amLODIPine BESYLATE 10 MG TABLET PO SCH (09:00)
[2019-01-06] MEDS: PREGABALIN 75 MG CAPSULE PO SCH (09:09)
[2019-01-06 09:10] VITALS: BP 161/100
[2019-01-06] MEDS: amLODIPine BESYLATE 10 MG TABLET PO SCH (09:10)
[2019-01-06] MEDS ORDERED: GADOTERATE 7.5 MMOL/15ML VIAL. IVP ONE (11:15)
--- NOTE | 2019-01-06 11:23 | PDOC ---
[facility] PROGRESS NOTE Chief Complaint Chief Complaint New onset seizure Chest pain HTN Obesity s/p sleeve gastrectomy Complex regional pain of left ankle ARABELLA History of Present Illness History of Present Illness 01/06/19 Pt seen/examined at bedside and with NAD Pt has no complaints and is tolerating food Chart reviewed DW RN Vitals/I&O Vitals/I&O: Vital Signs Date Time Temp Pulse Resp B/P (MAP) Pulse Ox O2 Delivery O2 Flow Rate FiO2 01/06/19 09:12 Room Air 01/06/19 09:10 59 161/100 01/06/19 07:50 97.9 20 98 97.9 I & O 01/05/19 01/05/19 01/06/19 15:00 23:00 07:00 Intake Total 1400 ml 1989 ml Output Total 2040 ml 1100 ml Balance -640 ml 889 ml Physical Exam General: Alert, Oriented X3, Cooperative, No acute distress Heart: Regular rate, No murmurs Lungs: Clear Abdomen: Normal bowel sounds, Soft, No tenderness, No hepatosplenomegaly, No masses Extremities: No clubbing, No cyanosis, No edema, Normal pulses, No tenderness/swelling Skin: No rashes, No breakdown, No significant lesion Labs Labs: Laboratory Tests Test 01/05/19 13:40 01/05/19 14:03 01/05/19 15:15 01/05/19 17:50 White Blood Count 7.8 x10^3/uL (4.0-11.0) Red Blood Count 4.80 x10^6/uL (4.30-5.70) Hemoglobin 14.2 g/dL (13.0-17.5) Hematocrit 42.0 % (39.0-53.0) Mean Corpuscular Volume 88 fL (79-100) Mean Corpuscular Hemoglobin 30 pg (25-35) Mean Corpuscular Hemoglobin Concent 34 g/dL (31-37) Red Cell Distribution Width 15.0 % (11.5-14.5) Platelet Count 343 x10^3/uL (140-400) Neutrophils (%) (Auto) 57 % (31-73) Lymphocytes (%) (Auto) 26 % (24-48) Monocytes (%) (Auto) 12 % (0-9) Eosinophils (%) (Auto) 4 % (0-3) Basophils (%) (Auto) 1 % (0-3) Neutrophils # (Auto) 4.5 x10^3/uL (1.8-7.7) Lymphocytes # (Auto) 2.1 x10^3/uL (1.0-4.8) Monocytes # (Auto) 1.0 x10^3/uL (0.0-1.1) Eosinophils # (Auto) 0.3 x10^3/uL (0.0-0.7) Basophils # (Auto) 0.1 x10^3/uL (0.0-0.2) Prothrombin Time 12.0 SEC (11.7-14.0) Prothromb Time International Ratio 0.9 (0.8-1.1) Sodium Level 145 mmol/L (136-145) Potassium Level 4.0 mmol/L (3.5-5.1) Chloride Level 106 mmol/L (98-107) Carbon Dioxide Level 25 mmol/L (21-32) Anion Gap 14 (6-14) Blood Urea Nitrogen 10 mg/dL (8-26) Creatinine 1.2 mg/dL (0.7-1.3) Estimated GFR (Cockcroft-Gault) 63.8 BUN/Creatinine Ratio 8 (6-20) Glucose Level 83 mg/dL (70-99) Lactic Acid Level 6.7 mmol/L (0.4-2.0) 0.9 mmol/L (0.4-2.0) Calcium Level 8.9 mg/dL (8.5-10.1) Magnesium Level 2.1 mg/dL (1.8-2.4) Total Bilirubin 0.4 mg/dL (0.2-1.0) Aspartate Amino Transf (AST/SGOT) 19 U/L (15-37) Alanine Aminotransferase (ALT/SGPT) 23 U/L (16-63) Alkaline Phosphatase 80 U/L (46-116) Troponin I Quantitative < 0.017 ng/mL (0.000-0.055) < 0.017 ng/mL (0.000-0.055) Total Protein 7.0 g/dL (6.4-8.2) Albumin 4.1 g/dL (3.4-5.0) Albumin/Globulin Ratio 1.4 (1.0-1.7) Ethyl Alcohol Level < 10 mg/dL (0-10) Urine Collection Type Unknown Urine Color Yellow Urine Clarity Clear Urine pH 5.5 Urine Specific [place] 1.015 Urine Protein Negative mg/dL (NEG-TRACE) Urine Glucose (UA) Negative mg/dL (NEG) Urine Ketones (Stick) Negative mg/dL (NEG) Urine Blood Negative (NEG) Urine Nitrite Negative (NEG) Urine Bilirubin Negative (NEG) Urine Urobilinogen Dipstick 0.2 mg/dL (0.2 mg/dL) Urine Leukocyte Esterase Negative (NEG) Urine RBC 0 /HPF (0-2) Urine WBC 0 /HPF (0-4) Urine Squamous Epithelial Cells Few /LPF Urine Bacteria 0 /HPF (0-FEW) Urine Mucus Mod /LPF Urine Opiates Screen Neg (NEG) Urine Methadone Screen Neg (NEG) Urine Barbiturates Neg (NEG) Urine Phencyclidine Screen Neg (NEG) Urine Amphetamine/Methamphetamine Neg (NEG) Urine Benzodiazepines Screen Neg (NEG) Urine Cocaine Screen Neg (NEG) Urine Cannabinoids Screen Pos (NEG) Urine Ethyl Alcohol Neg (NEG) Test 01/05/19 20:45 Troponin I Quantitative < 0.017 ng/mL (0.000-0.055) Thyroid Stimulating Hormone (TSH) 4.079 uIU/mL (0.358-3.74) Review of Systems Review of Systems: no co headache no co chest pain Assessment and Plan Assessmemt and Plan Problems Medical Problems: (1) Lactic acid acidosis Status: Acute (2) Seizure Status: Acute \ Assessment: New onset seizure Chest pain HTN Obesity s/p sleeve gastrectomy Complex regional pain of left ankle ARABELLA Plan: Awaiting MRI results PT/OT DVT prophylaxis Home Meds Appreciate subspeciality input Discharge if okay with neurology Comment Review of Relevant I have reviewed the following items aleta (where applicable) has been applied. Medications: Current Medications Medications (Trade) Dose Ordered Sig/Kwan Route PRN Reason Start Time Stop Time Status Last Admin Dose Admin Sodium Chloride 1,000 ml @ 1,000 mls/hr 1X ONCE IV 01/05/19 13:45 01/05/19 14:44 DC 01/05/19 13:58 Lorazepam (Ativan Inj) 1 mg 1X ONCE IV 01/05/19 13:45 01/05/19 13:49 DC 01/05/19 13:58 Acetaminophen (Tylenol) 1,000 mg 1X ONCE PO 01/05/19 13:45 01/05/19 13:49 DC 01/05/19 13:58 Sodium Chloride 1,000 ml @ 1,000 mls/hr 1X ONCE IV 01/05/19 14:00 01/05/19 14:59 DC 01/05/19 15:31 Ceftriaxone Sodium (Rocephin) 1 gm 1X ONCE IVP 01/05/19 15:00 01/05/19 15:01 DC 01/05/19 15:22 Sodium Chloride 1,000 ml @ 125 mls/hr Q8H IV 01/05/19 14:49 01/06/19 14:48 01/06/19 09:10 Morphine Sulfate (Morphine Sulfate) 4 mg 1X ONCE IV 01/05/19 15:00 01/05/19 19:53 DC 01/05/19 15:22 Hydromorphone HCl (Dilaudid) 1 mg 1X ONCE IV 01/05/19 16:00 01/05/19 16:01 DC 01/05/19 16:10 Pregabalin (Lyrica) 150 mg BID PO 01/05/19 21:00 01/06/19 09:10 Acetaminophen/ Codeine Phosphate (Tylenol #3) 1 tab Q4HRS PRN PO pain 01/05/19 16:15 01/05/19 19:53 DC 01/05/19 17:08 Amlodipine Besylate (Norvasc) 10 mg DAILY PO 01/05/19 18:45 01/06/19 09:10 Acetaminophen/ Hydrocodone Bitart (Lortab 7.5/325) 1 tab PRN Q6HRS PRN PO PAIN 01/05/19 20:00 01/06/19 07:51 Fentanyl Citrate (Fentanyl 2ml Vial) 25 mcg PRN Q4HRS PRN IV SEVERE PAIN 7-10 01/05/19 22:45 01/06/19 07:51 Ketorolac Tromethamine (Toradol 15mg Vial) 15 mg PRN Q6HRS PRN IV MODERATE PAIN 4-6 01/05/19 22:45 01/10/19 22:44 01/05/19 22:54 GERMÁN CONTI III DO Jan 06, 2019 11:23
--- NOTE | 2019-01-06 12:15 | RAD ---
BRAIN WO/W CONTRAST History: New seizure. Technique: Multiplanar, multi sequential pre and postcontrast MR imaging was performed of the brain. Contrast: 25 mL Dotarem Comparison: Head CT January 05, 2019 Findings: No acute infarct. No intracranial hemorrhage. No mass effect. No hydrocephalus. Extra-axial spaces are unremarkable. No pathologic enhancement. Punctate foci of T2/FLAIR hyperintensity within the hemispheric white matter, most often due to chronic microvascular ischemia. Imaged orbits are unremarkable. Mild scattered paranasal sinus mucosal thickening. Right maxillary sinus mucous retention cyst or polyp. Complete opacification of the right frontal sinus. Fluid within the sphenoid sinuses. Mastoid air cells are clear. Impression: 1. No acute intracranial abnormality. 2. Mild nonspecific white matter foci, most often due to chronic microvascular ischemia. 3. Paranasal sinus disease most prominent within the right frontal sinus. Electronically signed by: Sawyer Olivares DO (01/06/2019 12:12 PM) [id number]
--- NOTE | 2019-01-06 13:10 | EEG ---
DATE OF SERVICE: 01/06/2019 EEG NUMBER: [id number]. OBJECTIVE: This is a 53-year-old male patient with history of a new-onset seizure. EEG was requested to evaluate seizure activity. METHODS: Twenty electrodes were applied according to the international 10-20 electrode placement system. EKG monitoring, hyperventilation, intermittent photic stimulation, monopolar and bipolar montages are routinely utilized. The record was obtained on a digital system with video monitoring. FINDINGS: 1. Background: The patient was recorded in the awake, drowsy, and sleep states. The overall background amplitude is 10-30 microvolts. A posterior dominant rhythm of 8 Hz is observed. 2. Abnormalities: No specific epileptiform discharge or electrographic seizure is seen. No focal or diffuse slowing. 3. Activation: Hyperventilation was performed with fair efforts and normal response. Intermittent photic stimulation was performed with photic driving. No specific epileptiform discharge or electrographic seizure induced by hyperventilation or intermittent photic stimulation. IMPRESSION: This EEG is a normal study for the awake, drowsy, and sleep states. No focal, lateralizing, specific epileptiform discharge, or electrographic seizure is seen; however, a normal EEG does not rule out seizure. REGINA DAVIES MD DR: CHARMAINE/lawrence JOB#: [id number] / [id number] MARY
--- NOTE | 2019-01-06 15:28 | NUR ---
Discharge Note: LILI POLO [facility] Discharge instructions and discharge home medications reviewed with Patient and a copy given. All questions have been answered and understanding verbalized. The following instructions and handouts were given: discharge instructions, new prescription, education and follow up recommendations. Discontinued lines and drains: Peripheral IV discontinued intact. Patient discharged to Home or Self Care with Spouse via Ambulated off unit by RN.
--- NOTE | 2019-01-06 18:24 | PDOC ---
PROGRESS NOTES Assessment Assessment IMPRESSION: Seizure x 1. HTN. Cannabinoids positive. Obesity. RECOMMENDATIONS/PLAN: He has been taken Lyrica 150 mg bid. Patient education for drug abstinence. No driving x 6 months anytime after a seizure or seizure like episode, and he understood. FU with PCP. FU with Dr. Hart in [facility] as needed. Brain MRI: No seizure foci. No other acute abnormal finding. HCT: negative. EEG on 01/06/19: Normal study without epileptiform discharges or electrographic seizures. 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 Allergies No Known Drug Allergies (Unverified , 01/05/19) ROS Negative for fever, chills, weight loss, shortness of breath, chest pain, indigestion, hematochezia, melena, and dysuria. Full 14-point review of systems is negative. MEDICATIONS: Refer to [facility] PHYSICAL EXAMINATION: General appearance in no acute distress. HEENT: Normocephalic and nontraumatic. Eyes, nose, ears, and throat are unremarkable. Neck is supple. No lymphadenopathy. No bruits are heard over the carotid artery. No Crepitus. Cardiovascular: S1, S2, regular rate and rhythm. Pulmonary: Clear to auscultation bilaterally. Abdomen: Bowel sounds are positive. Abdomen is soft, nontender, and nondistended. Extremities: No rash, lesions, or edema. No restriction of range of motion NEUROLOGICAL EXAMINATION: Alert. Oriented to time, place and person. PERRL. EOMI. CN: no focal findings. Muscle tone: within normal. Muscle strength: 5 DTR: 2 Plantar reflex: Flexor response bilaterally Gait: At baseline normal. Sensory exam: no abnormal findings. No cerebellar signs elicited. F-T-N test accurate. Objective Objective Vital Signs Date Time Temp Pulse Resp B/P (MAP) Pulse Ox O2 Delivery O2 Flow Rate FiO2 01/06/19 15:27 98 Room Air 01/06/19 09:10 59 161/100 01/06/19 07:50 97.9 20 97.9 Intake and Output 01/06/19 06:59 Intake Total 3389 ml Output Total 3140 ml Balance 249 ml Intake Oral 1560 ml IV Total 1829 ml Output Urine Total 3140 ml Vitals Signs Vitals VS - Last 72 Hours, by Label Date Time Temp Pulse Resp B/P (MAP) Pulse Ox O2 Delivery O2 Flow Rate FiO2 01/06/19 15:27 98 Room Air 01/06/19 14:12 Room Air 01/06/19 13:14 98 Room Air 01/06/19 12:35 Room Air 01/06/19 09:12 Room Air 01/06/19 09:12 Room Air 01/06/19 09:10 59 161/100 01/06/19 07:55 Room Air 01/06/19 07:51 Room Air 01/06/19 07:51 Room Air 01/06/19 07:50 97.9 59 20 161/100 (120) 98 Room Air 97.9 01/06/19 03:05 97.8 54 18 121/80 (94) 95 Room Air 97.8 01/05/19 23:38 98.5 59 16 138/82 (100) 97 Room Air 98.5 01/05/19 19:05 98.3 71 20 141/84 (103) 95 Room Air 98.3 01/05/19 18:56 75 176/101 01/05/19 18:10 97 Room Air 01/05/19 17:26 98.2 75 20 176/101 (126) 97 Room Air 98.2 01/05/19 17:08 97 01/05/19 16:45 Room Air 01/05/19 16:00 88 18 96 01/05/19 15:29 82 18 96 01/05/19 14:59 87 18 97 01/05/19 14:00 106 18 95 01/05/19 13:31 100.9 110 20 155/86 (109) 100 Room Air 100.9 Laboratory Laboratory Laboratory Tests Test 01/05/19 20:45 Troponin I Quantitative < 0.017 ng/mL (0.000-0.055) Thyroid Stimulating Hormone (TSH) 4.079 uIU/mL (0.358-3.74) Microbiology 01/05/19 Blood Culture - Preliminary, Resulted NO GROWTH AFTER 1 DAY Medication Medications Current Medications Acetaminophen/ Hydrocodone Bitart (Lortab 7.5/325) 1 tab PRN Q6HRS PRN PO PAIN Last administered on 01/06/19at 14:12; Start 01/05/19 at 20:00; Stop 01/06/19 at 15:29; Status DC Amlodipine Besylate (Norvasc) 10 mg 1X ONCE PO ; Start 01/05/19 at 19:00; Stop 01/05/19 at 19:01; Status UNV Amlodipine Besylate (Norvasc) 10 mg DAILY PO Last administered on 01/06/19at 09:10; Start 01/05/19 at 18:45; Stop 01/06/19 at 15:29; Status DC Amlodipine Besylate (Norvasc) 10 mg DAILY PO ; Start 01/06/19 at 09:00; Status UNV Fentanyl Citrate (Fentanyl 2ml Vial) 25 mcg PRN Q4HRS PRN IV SEVERE PAIN 7-10 Last administered on 01/06/19at 12:35; Start 01/05/19 at 22:45; Stop 01/06/19 at 15:29; Status DC Fentanyl Citrate (Fentanyl 2ml Vial) 25 mcg Q4HRS PRN IV PAIN; Start 01/05/19 at 22:45; Status UNV Gadoterate Meglumine (Dotarem) 25 ml 1X ONCE IVP Last administered on 01/06/19at 11:39; Start 01/06/19 at 11:15; Stop 01/06/19 at 11:16; Status DC Ketorolac Tromethamine (Toradol 15mg Vial) 15 mg PRN Q6HRS PRN IV MODERATE PAIN 4-6 Last administered on 01/05/19at 22:54; Start 01/05/19 at 22:45; Stop 01/06/19 at 15:29; Status DC Ketorolac Tromethamine (Toradol 15mg Vial) 15 mg PRN Q6HRS PRN IV MODERATE PAIN 4-6; Start 01/05/19 at 22:45; Stop 01/10/19 at 22:44; Status Cancel Lorazepam (Ativan Inj) 1 mg PRN Q4HRS PRN IV SEIZURES; Start 01/05/19 at 22:45; Stop 01/06/19 at 15:29; Status DC Morphine Sulfate (Morphine Sulfate) 4 mg PRN Q6HRS PRN IV PAIN; Start 01/05/19 at 18:45; Stop 01/05/19 at 19:53; Status DC Pregabalin (Lyrica) 150 mg BID PO Last administered on 01/06/19at 09:10; Start 01/05/19 at 21:00; Stop 01/06/19 at 15:29; Status DC Comment Review of Relevant I have reviewed the following items aleta (where applicable) has been applied. REGINA DAVIES MD Jan 06, 2019 18:24
--- NOTE | 2019-01-06 21:39 | DS ---
DATE OF DISCHARGE: 01/06/2019 ADMISSION DIAGNOSIS: Seizure. DISCHARGE DIAGNOSIS: Resolving seizure. CONSULTS: Neurology. PROCEDURES: None. HOSPITAL COURSE: The patient is a pleasant middle-aged male, who had a seizure while he was shopping at [facility]. Ambulance was called. He was brought in for evaluation. We did consult Neurology, did an MRI and an EEG. Everything was negative. We plan to discharge with close outpatient followup. DISPOSITION: Home. ACTIVITY: As tolerated. DIET: Low sodium. MEDICATIONS: Please see the MRAD. TOTAL TIME: 32 minutes. GERMÁN CONTI DO DR: URI/lawrence JOB#: [id number] / [id number]
== END 2019-01-06 15:29 | disposition home or self-care (01) | DRG 101 ==
LOC: ER 13:21 → ED HOLD 15:00 → 6 SOUTH 16:37
PROVIDERS: ADMIT Internal Medicine; ATTEND Internal Medicine
DX: G40.89 Other seizures (principal); E87.2 Acidosis; F05 Delirium due to known physiological condition; R07.89 Other chest pain; E66.9 Obesity, unspecified; G47.33 Obstructive sleep apnea (adult) (pediatric); I10 Essential (primary) hypertension; M19.90 Unspecified osteoarthritis, unspecified site; Z96.641 Presence of right artificial hip joint; Z96.659 Presence of unspecified artificial knee joint; Z72.820 Sleep deprivation; Z87.891 Personal history of nicotine dependence; Z98.84 Bariatric surgery status
CPT/HCPCS: 36415; 70450; 70553; 71045; 80053; 80307; 81001; 83605; 83735; 84443; 84484; 85025; 85610; 87040; 93005; 95816; A9575; G0480; J0696; J1170; J1885; J2060; J2270; J3010; J7030; 99285-25; G0378